=== PATIENT | male | born 1975 | race Caucasian/White ===

== ENCOUNTER 2021-04-18 14:09 | Emergency (ER) | payer OTHER, SELFPAY ==
[2021-04-18 14:11] VITALS: BP 141/106; PULSE 117; RESP 20; TEMP 36.6; O2SAT 97; BMI 26.4
--- NOTE | 2021-04-18 15:28 | EX.ED.GENINJ ---
HPI History of Present Illness Chief Complaint: Other, Pain/Inj Detail of Chief Complaint: Atraumatic neck pain Informant: patient Onset/Context/Timing Onset: Today Quality of Pain: Sharp Current Severity: Moderate Maximum Severity: Moderate Associated Symptoms Associated Symptoms: Negative for Parasthesias, Weakness, Loss of function, Inability to ambulate, Loss of consciousness and Amnesia Narrative Narrative: 45[facility]year-old [facility] patient from [place] is up here doing well. Today went to get in his vehicle he twisted his neck and had sudden pain. He states the muscles locked up. He said it feels real tight now. He has had prior MRIs of his neck. He has had neck injections about 2 months ago. He is never had any neck or back surgery. Prior similar symptoms: Yes Recent Illness/Hospitalization: No PFSH PFSH Medical History Chronic pain Hypertension Home Medications diazepam [Valium] 5 mg PO TID PRN #14 tab 04/18/21 [Rx Last Taken Unknown] diclofenac sodium 50 mg PO DAILY 04/18/21 [History Last Taken Unknown] lisinopril-hydrochlorothiazide 1 tab PO DAILY 04/18/21 [History Last Taken Unknown] tramadol 50 mg PO TID PRN 04/18/21 [History Last Taken Unknown] Allergy/AdvReac Type Severity Reaction Status Date / Time No Known Allergies Allergy Verified 04/18/21 14:10 Social History Smoking Status: Never smoker ROS ROS ED ROS Narrative Denies any recent illness. No fever or chills. Review of Systems ROS Unobtainable: Denies due to encephalopathy Constitutional Constitutional ED: Denies chills or fever(s) Eyes Eyes: Denies change in vision ENT ENT ED: Denies ear pain or sore throat Cardiovascular Cardiovascular: Denies chest pain Respiratory/Chest Respiratory/Chest: Denies cough or dyspnea Gastrointestinal Gastrointestinal: Denies abdominal pain, diarrhea, nausea or vomiting Genitourinary Genitourinary ED: Denies dysuria or hematuria Musculoskeletal Musculoskeletal: Denies arthralgias or myalgias Integumentary Denies abscess or rash Neurologic Neurologic: Denies headache(s) Psychiatric Psychiatric: Denies depression Endocrine Endocrinology: Denies polyuria Hematologic/Lymphatic Hematologic/Lymphatic: Denies easy bruising Allergic/Immunologic Allergic/Immunologic ED: Denies urticaria EXAM Physical Exam Narrative Exam Narrative: Middle-age male complaining neck pain on his head very still. Vital signs stable. Is afebrile. Does not look septic or toxic. H EENT exam unremarkable. Neck is obvious paracervical muscle spasm. Posteriorly. There is no lymphadenopathy. Trachea midline. Lungs clear to auscultation bilaterally. Heart regular rhythm rate about 110. No murmur. Abdomen soft nontender normal bowel sounds no peritoneal signs. Moving all 4 extremities. Neurovascular intact. Normal supervisor phosphoric acid strength. Dorsi plantarflexion intact. Normal sensation. Neurologically is awake alert with no focal motor deficits. Const Vital Signs: 04/18/21 14:11 Temperature 98 F Temperature Source Temporal Pulse Rate 117 H Respiratory Rate 20 H Blood Pressure 141/106 H Blood Pressure Mean 117 Pulse Ox 97 Oxygen Delivery Method Room Air Positive well nourished and well developed General Appearance ED: well developed HEENT atraumatic; Negative for trauma or tenderness Eyes PERRL and EOMs intact bilaterally Neck No full ROM Neck Narrative: Soft tissue tenderness consistent with muscle spasm in his neck. General: tenderness Chest Wall inspection of chest normal and palpation of chest normal Resp normal respiratory effort and clear to auscultation bilaterally Cardio regular rhythm and no murmurs Rate: tachycardic GI normal to inspection, nondistended, normoactive bowel sounds, non-tender, non-distended and no masses Inspection: Negative for abdominal distention Auscultation: normoactive bowel sounds Palpation: soft; Negative for tender, guarding or rebound tenderness present Back/Spine normal to inspection Extremity normal to inspection and full ROM General Extremety ED: Negative for deformity, edema or tenderness General Extremity: Negative for deformity or edema Neuro oriented x3, CN's II-XII intact bilaterally, moves all extremities, no focal motor deficits and no sensory deficits noted Sensorium / Orientation: alert, oriented to person, oriented to place and oriented to time; Negative for orientation impaired, lethargic or stuporous Skin no rashes or lesions noted and no wounds MDM MDM MDM Narrative Medical decision making narrative: Middle-age male complaint neck pain. History and exam are consistent with muscle spasm. Will be given IM injection Dilaudid p.o. Valium. Motrin at home not shower, warm bath and massage. Valium as a muscle relaxant. Discharge Plan Triage Chief Complaint: Other, Pain/Inj ED Provider: Aidan Ramos Dx/Rx/DC Orders Clinical Impression: Neck muscle spasm Instructions: Muscle Spasm Prescriptions: New diazepam [Valium] 5 mg tablet 5 mg PO TID PRN (Reason: muscle spasm) Qty: 14 RF: 0 No Action tramadol 50 mg Tablet 50 mg PO TID PRN (Reason: neck pain) RF: 0 diclofenac sodium 50 mg Tablet,Delayed Release (Dr/Ec) 50 mg PO DAILY RF: 0 lisinopril-hydrochlorothiazide 10-12.5 mg Tablet 1 tab PO DAILY RF: 0 Referrals: Amadeo Maldonado MD [STAFF PHYSICIAN] - 3-5 Days if not improving Activity Restrictions/Additional Instructions: Hot shower, warm bath and massage to relax the muscles in your neck. Consider a medical massage. Motrin for pain and inflammation. Valium is a muscle relaxant. Do not drink or drive while using Valium. Do not take with narcotic pain medication. Follow-up if not improving. Disposition Disposition: Home, Self Care
[2021-04-18] MEDS: diazePAM 5 MG Tablet 10 MG PO (15:41)
[2021-04-18] MEDS: HYDROmorphone 1 MG/ML Syringe IM (15:42)
== END 2021-04-18 16:23 | disposition home or self-care (01) ==
PROVIDERS: Emergency Provider Emergency Medicine
DX: M62.838 Other muscle spasm (principal); M54.2 Cervicalgia; X50.1XXA Overexertion from prolonged static or awkward postures, initial encounter; Y93.9 Activity, unspecified; Y92.9 Unspecified place or not applicable; I10 Essential (primary) hypertension; G89.29 Other chronic pain; Z79.899 Other long term (current) drug therapy
CPT/HCPCS: 96372; 99283